=== PATIENT | male | born 1940 | race Caucasian/White ===

== ENCOUNTER 2021-06-24 11:30 | Emergency (ER) | payer OTHER ==
[2021-06-24 12:56] LABS: RED BLOOD COUNT 4.67 M/UL (4.20-5.50); WHITE BLOOD COUNT 9.5 K/UL (4.5-11.0)
[2021-06-24 13:25] LABS: BUN/CREATININE RATIO 31 (0-10)
[2021-06-24] MEDS ORDERED: ZOFRAN ODT 4 MG4 MG SL (15:13)
== END 2021-06-24 15:25 | disposition home or self-care (01) ==
LOC: ER1 11:30
PROVIDERS: Emergency Medicine
DX: A08.4 Viral intestinal infection, unspecified (principal); E78.5 Hyperlipidemia, unspecified; I10 Essential (primary) hypertension
CPT/HCPCS: 80053; 81001; 85025; 96374; 99284; J2405